=== PATIENT | female | born 1935 | race African-American/Black ===

== ENCOUNTER 2016-11-02 10:51 | Inpatient (IN) | payer MEDICARE, MEDICAID ==
[~2016-11-02] VITALS: Ht 160 cm; Wt 56.7 kg
[~2016-11-02 10:51] MED LIST: BENZ100C86 PO; CHOL500010 PO; CHOL500051 PO; CILO100T PO; CODE118S2 PO; FISH1CAP38 PO; FOLI-43 PO; KETO5DRO27 OP; METH2.5T PO; METH4TAB PO; MULT1TAB7 PO; SIMV20TA6 PO; omeprazole PO
[2016-11-02] MEDS ORDERED: MORPHINE SULFATE 4 MG/ML CPJ (NOT FOR IM USE) IV STA (12:32)
[2016-11-02] MEDS ORDERED: ONDANSETRON HCL 4MG/2ML VIAL IV STA (12:32)
[2016-11-02 13:01] LABS: HEMATOCRIT. 21.6 % (36.0-48.0); MEAN CORPUSCULAR HEMOGLOBIN 28.7 pg (28.0-32.0); MEAN CORPUSCULAR HGB CONC 31.8 g/dL (31.0-37.0); MEAN CORPUSCULAR VOLUME 90.3 fL (81.0-99.0); MEAN PLATELET VOLUME 8.1 fl (7.4-10.4); PLATELET 288 x1000/uL (130-400); RED BLOOD CELL COUNT 2.39 mill/uL (4.2-5.4); RED CELL DISTRIBUTION WIDTH 17.5 % (11.6-14.6); WHITE BLOOD COUNT 11.6 x1000/uL (4.5-11.0)
[2016-11-02 13:03] LABS: DIFFERENTIAL COMMENT 1; HEMOGLOBIN. 6.9 g/dL (12.0-16.0)
[2016-11-02 13:18] LABS: D-DIMER 2.11 mg/L FEU (<0.50); INR 1.1; PARTIAL THROMBOPLASTIN TIME 25.2 sec (24.0-34.0); PROTHROMBIN TIME 11.4 sec
[2016-11-02 13:22] LABS: ALANINE AMINOTRANSFERASE 21 IU/L (13-61); ALBUMIN 2.6 g/dL (3.4-5.0); ANION GAP 14; CALCIUM 8.5 mg/dL (8.5-10.1); CARBON DIOXIDE 25 mEq/L (21-32); CHLORIDE 103 mEq/L (98-107); INDEX HEMOLYSI 1 (1-3); INDEX ICTERIC 1 (1-4); INDEX LIPEMIC 1 (1-3); NT PRO B-TYPE NATRIURETIC PEP 1051 pg/mL (5-125); TROPONIN I < 0.02 ng/mL (0.00-0.04); UREA NITROGEN BLOOD 14 mg/dL (7-21); eGFR > 60 mL/min (>60)
[2016-11-02 13:39] LABS: ANISOCYTOSIS 1+; PLATELET ESTIMATE NORMAL
[2016-11-02] MEDS ORDERED: CLONIDINE 0.1MG TABLET PO PRN ×2 (14:15→15:03)
[2016-11-02] MEDS ORDERED: PANTOPRAZOLE 80 MG in SODIUM CHLORIDE 0.9% 100 ML IV SCH (14:30)
[2016-11-02] MEDS ORDERED: PANTOPRAZOLE SODIUM 40 MG/VIAL IV ONE (14:30)
[2016-11-02 14:43] LABS: INDEX HEMOLYSI 1 (1-3); INDEX ICTERIC 1 (1-4); INDEX LIPEMIC 1 (1-3); IRON 31 ug/dL (50-175); TOTAL IRON BINDING CAPACITY 302 ug/dL (250-450)
[2016-11-02] MEDS: AMLODIPINE 5MG TABLET PO SCH ×2 (15:28→21:00)
[2016-11-02] MEDS ORDERED: ONDANSETRON HCL 4MG/2ML VIAL IV PRN (16:15)
[2016-11-02] MEDS ORDERED: IPRATROPIUM/ALBUTEROL 0.5-3(2.5)MG/3ML NEB INH PRN (16:15)
[2016-11-02] MEDS ORDERED: DIPHENHYDRAMINE 50MG/ML VIAL IV PRN (16:15)
[2016-11-02] MEDS ORDERED: DOCUSATE SODIUM 100MG CAPSULE PO PRN (16:15)
[2016-11-02] MEDS ORDERED: NITROGLYCERIN 0.4MG TABLET SL SL PRN (16:15)
[2016-11-02] MEDS ORDERED: GUAIFENESIN 200MG/10ML SUGAR FREE UDC PO PRN (16:15)
[2016-11-02] MEDS ORDERED: LORAZEPAM 2MG/ML CPJ IV PRN (16:15)
[2016-11-02] MEDS ORDERED: NA PHOS,M-B/NA PHOS,DI-BA ENEMA 118ML PR PRN (16:34)
[2016-11-02] MEDS: PANTOPRAZOLE SODIUM 40 MG/VIAL IV SCH (17:00)
[2016-11-02] MEDS: MORPHINE SULFATE 2 MG/ML CPJ (NOT FOR IM USE) IV PRN (17:32)
[2016-11-02 18:59] LABS: HEMATOCRIT 26.5 % (36.0-48.0); HEMOGLOBIN 8.6 g/dL (12.0-16.0)
[2016-11-02] MEDS: TRAMADOL 50MG TABLET PO PRN (19:40)
[2016-11-02 22:20] VITALS: BP 170/64
[2016-11-02 22:28] LABS: CREATINE KINASE 162 IU/L (26-192); CREATINE KINASE MB FRACTION 2.3 ng/mL (0.5-3.6); INDEX HEMOLYSI 1 (1-3); TROPONIN I < 0.02 ng/mL (0.00-0.04)
[2016-11-03] VITALS: BP 123/56
[2016-11-03 00:49] LABS: HEMOGLOBIN 9.7 g/dL (12.0-16.0)
[2016-11-03] MEDS: TRAMADOL 50MG TABLET PO PRN ×2 (02:03→23:43)
[2016-11-03] MEDS: ZOLPIDEM TARTRATE 5MG TABLET PO PRN ×2 (02:03→22:40)
[2016-11-03 04:00] VITALS: BP 144/51
[2016-11-03 06:39] LABS: BASOPHILS % 0.7 % (0.0-2.0); EOSINOPHILS % 1.6 % (0.0-5.0); HEMATOCRIT. 32.9 % (36.0-48.0); HEMOGLOBIN. 10.7 g/dL (12.0-16.0); LYMPHOCYTES % 7.2 % (20.0-50.0); MEAN CORPUSCULAR HEMOGLOBIN 28.6 pg (28.0-32.0); MEAN CORPUSCULAR HGB CONC 32.4 g/dL (31.0-37.0); MEAN CORPUSCULAR VOLUME 88.2 fL (81.0-99.0); MEAN PLATELET VOLUME 8.7 fl (7.4-10.4); MONOCYTES % 9.4 % (2.0-8.0); NEUTROPHILS % 81.1 % (40.0-76.0); PLATELET 303 x1000/uL (130-400); RED BLOOD CELL COUNT 3.73 mill/uL (4.2-5.4); RED CELL DISTRIBUTION WIDTH 16.8 % (11.6-14.6)
[2016-11-03 06:57] LABS: ALANINE AMINOTRANSFERASE 26 IU/L (13-61); ALBUMIN 2.9 g/dL (3.4-5.0); ANION GAP 13; CALCIUM 8.5 mg/dL (8.5-10.1); CARBON DIOXIDE 26 mEq/L (21-32); CHLORIDE 102 mEq/L (98-107); CREATINE KINASE 203 IU/L (26-192); INDEX HEMOLYSI 1 (1-3); INDEX ICTERIC 1 (1-4); INDEX LIPEMIC 1 (1-3); NT PRO B-TYPE NATRIURETIC PEP 1129 pg/mL (5-125); UREA NITROGEN BLOOD 14 mg/dL (7-21); eGFR > 60 mL/min (>60)
[2016-11-03 06:58] LABS: TROPONIN I < 0.02 ng/mL (0.00-0.04)
[2016-11-03 08:00] VITALS: BP 130/65
[2016-11-03] MEDS: AMLODIPINE 5MG TABLET PO SCH ×2 (09:00→22:41)
[2016-11-03] MEDS: PANTOPRAZOLE SODIUM 40 MG/VIAL IV SCH ×2 (09:38→21:55)
[2016-11-03] MEDS: DEXT 5%/0.9% NACL 1,000 ML IV SCH (10:00)
[2016-11-03 12:00] VITALS: BP 131/62
[2016-11-03] MEDS ORDERED: SODIUM CHLORIDE 0.9% 10ML VIAL ONE (14:06)
[2016-11-03] MEDS ORDERED: SIMETHICONE 40 MG/0.6 ML 30ML ONE ×2 (14:06→16:26)
[2016-11-03 16:00] VITALS: BP 141/80
[2016-11-03] MEDS ORDERED: MIDAZOLAM HCL 5 MG/5 ML VIAL IV PRN ×2 (16:26)
[2016-11-03] MEDS ORDERED: MIDAZOLAM HCL 5 MG/5 ML VIAL ONE (16:26)
[2016-11-03] MEDS ORDERED: FENTANYL CITRATE/PF 50MCG/ML 2ML VIAL ONE (16:26)
[2016-11-03] MEDS ORDERED: FENTANYL CITRATE/PF 50MCG/ML 2ML VIAL IV PRN ×2 (16:26)
[2016-11-03 20:04] VITALS: BP 164/83
[2016-11-03] MEDS: MORPHINE SULFATE 2 MG/ML CPJ (NOT FOR IM USE) IV PRN (20:14)
[2016-11-04] VITALS: BP 142/82
[2016-11-04 04:00] VITALS: BP 148/71
[2016-11-04] MEDS: DEXT 5%/0.9% NACL 1,000 ML IV SCH (05:57)
[2016-11-04] MEDS: TRAMADOL 50MG TABLET PO PRN (05:58)
[2016-11-04] MEDS: ACETAMINOPHEN 325MG TABLET PO PRN ×3 (05:58→21:46)
[2016-11-04 08:00] VITALS: BP 137/65
[2016-11-04] MEDS: AMLODIPINE 5MG TABLET PO SCH ×2 (09:49→21:46)
[2016-11-04] MEDS: PANTOPRAZOLE SODIUM 40 MG/VIAL IV SCH ×2 (09:49→17:01)
[2016-11-04 12:00] VITALS: BP 116/58
[2016-11-04 16:00] VITALS: BP 138/62
[2016-11-04 20:00] VITALS: BP 139/68
[2016-11-05 01:17] VITALS: BP 138/75
[2016-11-05 04:00] VITALS: BP 124/60
[2016-11-05 06:34] LABS: HEMATOCRIT. 30.8 % (36.0-48.0); HEMOGLOBIN. 10.1 g/dL (12.0-16.0); MEAN CORPUSCULAR HEMOGLOBIN 28.5 pg (28.0-32.0); MEAN CORPUSCULAR HGB CONC 32.7 g/dL (31.0-37.0); MEAN CORPUSCULAR VOLUME 87.1 fL (81.0-99.0); MEAN PLATELET VOLUME 8.4 fl (7.4-10.4); PLATELET 297 x1000/uL (130-400); RED BLOOD CELL COUNT 3.53 mill/uL (4.2-5.4); RED CELL DISTRIBUTION WIDTH 16.7 % (11.6-14.6); WHITE BLOOD COUNT 8.7 x1000/uL (4.5-11.0)
[2016-11-05] MEDS: DEXT 5%/0.9% NACL 1,000 ML IV SCH (06:50)
[2016-11-05 07:03] LABS: DIFFERENTIAL COMMENT 1
[2016-11-05 07:09] LABS: ANION GAP 14; CALCIUM 8.1 mg/dL (8.5-10.1); CARBON DIOXIDE 25 mEq/L (21-32); CHLORIDE 103 mEq/L (98-107); INDEX HEMOLYSI 1 (1-3); INDEX ICTERIC 1 (1-4); INDEX LIPEMIC 1 (1-3); MAGNESIUM 1.9 mg/dL (1.8-2.4); UREA NITROGEN BLOOD 11 mg/dL (7-21)
[2016-11-05 07:11] LABS: eGFR > 60 mL/min (>60)
[2016-11-05 08:00] VITALS: BP 134/65
[2016-11-05] MEDS: PANTOPRAZOLE SODIUM 40 MG/VIAL IV SCH (10:34)
[2016-11-05] MEDS: AMLODIPINE 5MG TABLET PO SCH (10:34)
[2016-11-05 11:00] VITALS: BP 134/65
[2016-11-05 12:00] VITALS: BP 142/68
[2016-11-05 13:38] LABS: ANISOCYTOSIS 1+; PLATELET ESTIMATE NORMAL
== END 2016-11-05 14:25 | disposition home or self-care (01) | DRG 377 ==
LOC: ER 14:27 → 7WST 14:28 → SUPCPDRO 16:04 → 7WST 11-03 19:52
PROVIDERS: ADMIT Internal Medicine; ATTEND Internal Medicine
PROC: 30233N1 Transfusion of Nonautologous Red Blood Cells into Peripheral Vein, Percutaneous Approach (ICD-10-PCS; 2016-11-02)
PROC: 0DJ08ZZ Inspection of Upper Intestinal Tract, Via Natural or Artificial Opening Endoscopic (ICD-10-PCS; principal; 2016-11-03 15:00)
DX: K92.2 Gastrointestinal hemorrhage, unspecified (principal); E43 Unspecified severe protein-calorie malnutrition; G93.40 Encephalopathy, unspecified; D50.9 Iron deficiency anemia, unspecified; I11.9 Hypertensive heart disease without heart failure; I65.29 Occlusion and stenosis of unspecified carotid artery; I51.9 Heart disease, unspecified; J44.9 Chronic obstructive pulmonary disease, unspecified; I73.9 Peripheral vascular disease, unspecified; E78.00 Pure hypercholesterolemia, unspecified; E87.70 Fluid overload, unspecified; G89.29 Other chronic pain; H40.9 Unspecified glaucoma; M79.89 Other specified soft tissue disorders; T40.605A Adverse effect of unspecified narcotics, initial encounter; T42.4X5A Adverse effect of benzodiazepines, initial encounter; R26.2 Difficulty in walking, not elsewhere classified; I25.10 Atherosclerotic heart disease of native coronary artery without angina pectoris; K44.9 Diaphragmatic hernia without obstruction or gangrene; M06.9 Rheumatoid arthritis, unspecified; M19.90 Unspecified osteoarthritis, unspecified site; R31.9 Hematuria, unspecified; Z87.891 Personal history of nicotine dependence; Z68.22 Body mass index [BMI] 22.0-22.9, adult; Z98.890 Other specified postprocedural states; Z90.710 Acquired absence of both cervix and uterus
CPT/HCPCS: 36415; 71010; 80048; 80053; 80061; 82550; 82553; 83036; 83540; 83550; 83735; 83880; 84484; 85014; 85018; 85025; 85379; 85610; 85730; 86850; 86900; 86920; 93005; 93306; 93970; 96374; 96375; 96376; 99291; A4216; C1893; C9113; J2250; J2270; J2405; J3010; J7042; J7050; P9016

== ENCOUNTER 2016-11-29 21:34 | Inpatient (IN) | payer MEDICARE, MEDICAID ==
[~2016-11-29] VITALS: Ht 160 cm; Wt 51.7 kg
[2016-11-29] MEDS ORDERED: ONDANSETRON HCL 4MG/2ML VIAL IV STA (22:32)
[2016-11-29] MEDS ORDERED: MORPHINE SULFATE 4 MG/ML CPJ (NOT FOR IM USE) IV STA (22:32)
[2016-11-29 23:00] LABS: HEMATOCRIT. 26.9 % (36.0-48.0); HEMOGLOBIN. 8.7 g/dL (12.0-16.0); MEAN CORPUSCULAR HEMOGLOBIN 27.3 pg (28.0-32.0); MEAN CORPUSCULAR HGB CONC 32.3 g/dL (31.0-37.0); MEAN CORPUSCULAR VOLUME 84.4 fL (81.0-99.0); MEAN PLATELET VOLUME 8.4 fl (7.4-10.4); PLATELET 215 x1000/uL (130-400); RED BLOOD CELL COUNT 3.19 mill/uL (4.2-5.4); RED CELL DISTRIBUTION WIDTH 17.4 % (11.6-14.6); WHITE BLOOD COUNT 10.2 x1000/uL (4.5-11.0)
[2016-11-29 23:02] LABS: DIFFERENTIAL COMMENT 1
[2016-11-29 23:07] LABS: CHLORIDE 104 mEq/L (98-107); INDEX HEMOLYSI 2 (1-3); INDEX ICTERIC 1 (1-4); INDEX LIPEMIC 1 (1-3)
[2016-11-29 23:12] LABS: ANISOCYTOSIS 1+; PLATELET ESTIMATE NORMAL
[2016-11-29 23:15] LABS: ALANINE AMINOTRANSFERASE 17 IU/L (13-61); ALBUMIN 2.8 g/dL (3.4-5.0); ANION GAP 13; CALCIUM 8.2 mg/dL (8.5-10.1); CARBON DIOXIDE 24 mEq/L (21-32); UREA NITROGEN BLOOD 12 mg/dL (7-21); eGFR > 60 mL/min (>60)
[2016-11-29 23:31] LABS: INR 1.1; PARTIAL THROMBOPLASTIN TIME 24.9 sec (24.0-34.0); PROTHROMBIN TIME 11.6 sec
[2016-11-30] MEDS ORDERED: ACETAMINOPHEN 325MG TABLET PO PRN (01:45)
[2016-11-30] MEDS ORDERED: IPRATROPIUM/ALBUTEROL 0.5-3(2.5)MG/3ML NEB INH PRN (01:45)
[2016-11-30] MEDS ORDERED: MAGNESIUM/ALUMINUM HYDROXIDE/SIMETHICONE 30ML UDC PO PRN (01:45)
[2016-11-30] MEDS ORDERED: ENOXAPARIN 40MG/0.4ML SYR SUBCUT SCH (01:45)
[2016-11-30] MEDS ORDERED: ACETAMINOPHEN 650MG/20.3ML UDC GT PRN (01:45)
[2016-11-30] MEDS ORDERED: GUAIFENESIN 200MG/10ML SUGAR FREE UDC PO PRN (01:45)
[2016-11-30] MEDS ORDERED: DIPHENHYDRAMINE 50MG/ML VIAL IV PRN (01:45)
[2016-11-30] MEDS ORDERED: NA PHOS,M-B/NA PHOS,DI-BA ENEMA 118ML PR PRN ×2 (01:45→02:45)
[2016-11-30] MEDS ORDERED: DOCUSATE SODIUM 100MG CAPSULE PO PRN (01:45)
[2016-11-30] MEDS ORDERED: ACETAMINOPHEN 650MG SUPP PR PRN (01:45)
[2016-11-30] MEDS ORDERED: HYDROMORPHONE HCL/PF 2MG/ML CPJ IV PRN (01:45)
[2016-11-30] MEDS ORDERED: ONDANSETRON HCL 4MG/2ML VIAL IV PRN (01:45)
[2016-11-30 02:50] VITALS: BP 170/68
[2016-11-30] MEDS: HYDROMORPHONE HCL/PF 2MG/ML CPJ IV PRN ×2 (03:30→21:40)
[2016-11-30 04:00] VITALS: BP 176/84
[2016-11-30] MEDS ORDERED: SODIUM CHLORIDE 0.9% INJ 3ML FLUSH IVF SCH (06:00)
[2016-11-30] MEDS: SODIUM CHLORIDE 0.9% INJ 3ML FLUSH IVF SCH ×2 (06:37→20:59)
[2016-11-30 07:11] LABS: CLARITY URINE CLEAR (CLEAR); COLOR URINE YELLOW (YELLOW); GLUCOSE URINE NEGATIVE (NEGATIVE); KETONES URINE NEGATIVE (NEGATIVE); LEUKOCYTE ESTERASE URINE NEGATIVE (NEGATIVE); NITRITE URINE NEGATIVE (NEGATIVE); OCCULT BLOOD URINE 1+ (NEGATIVE); PH URINE 5.5 (4.5-8.0); PROTEIN URINE TRACE (NEGATIVE); SPECIFIC GRAVITY URINE 1.015 (1.005-1.030); UROBILINOGEN URINE 0.2 E.U./dL (0.2-1.0)
[2016-11-30 07:33] LABS: SQUAMOUS EPITHELIAL CELL URINE FEW /lpf (RARE/1+)
[2016-11-30 07:34] LABS: HYALINE CASTS URINE 0-5 /lpf; MUCUS URINE 1+ /lpf (< = 2+)
[2016-11-30 07:35] LABS: BACTERIA URINE TRACE; RBC URINE 0-2 /hpf (0-2); WBC URINE 0-2 /hpf (0-2)
[2016-11-30 07:47] LABS: *AMPHETAMINES SCREEN URINE NEGATIVE (NEGATIVE); *BARBITURATES SCREEN URINE NEGATIVE (NEGATIVE); *BENZODIAZEPINES SCREEN URINE NEGATIVE (NEGATIVE); *COCAINE SCREEN URINE NEGATIVE (NEGATIVE); CANNABINOID URINE SCREEN NEGATIVE (NEGATIVE); ECSTASY MDMA SCREEN URINE NEGATIVE (NEGATIVE); METHADONE URINE SCREEN NEGATIVE (NEGATIVE); OPIATES URINE SCREEN PRESUMTIVE POSITIVE (NEGATIVE); PHENCYCLIDINE URINE SCREEN NEGATIVE (NEGATIVE)
[2016-11-30 08:00] VITALS: BP 108/59
[2016-11-30] MEDS: ENOXAPARIN 40MG/0.4ML SYR SUBCUT SCH (09:00)
[2016-11-30 12:00] VITALS: BP 146/74
[2016-11-30 16:00] VITALS: BP 144/68
[2016-11-30 20:00] VITALS: BP 146/64
[2016-11-30 22:13] LABS: BASOPHILS % 0.8 % (0.0-2.0); EOSINOPHILS % 3.4 % (0.0-5.0); HEMATOCRIT. 28.8 % (36.0-48.0); HEMOGLOBIN. 9.3 g/dL (12.0-16.0); LYMPHOCYTES % 8.2 % (20.0-50.0); MEAN CORPUSCULAR HEMOGLOBIN 27.7 pg (28.0-32.0); MEAN CORPUSCULAR HGB CONC 32.2 g/dL (31.0-37.0); MEAN CORPUSCULAR VOLUME 85.9 fL (81.0-99.0); MEAN PLATELET VOLUME 8.7 fl (7.4-10.4); MONOCYTES % 10.6 % (2.0-8.0); PLATELET 242 x1000/uL (130-400); RED BLOOD CELL COUNT 3.35 mill/uL (4.2-5.4); RED CELL DISTRIBUTION WIDTH 17.7 % (11.6-14.6)
[2016-11-30 22:33] LABS: ALANINE AMINOTRANSFERASE 22 IU/L (13-61); ALBUMIN 3.1 g/dL (3.4-5.0); ANION GAP 16; CARBON DIOXIDE 24 mEq/L (21-32); CHLORIDE 103 mEq/L (98-107); INDEX HEMOLYSI 3 (1-3); INDEX ICTERIC 1 (1-4); INDEX LIPEMIC 1 (1-3); UREA NITROGEN BLOOD 10 mg/dL (7-21); eGFR > 60 mL/min (>60)
[2016-12-01] VITALS: BP 137/69
[2016-12-01 04:00] VITALS: BP 135/75
[2016-12-01] MEDS: SODIUM CHLORIDE 0.9% INJ 3ML FLUSH IVF SCH ×3 (06:43→20:28)
[2016-12-01 08:00] VITALS: BP 161/77
[2016-12-01] MEDS: ENOXAPARIN 40MG/0.4ML SYR SUBCUT SCH (08:24)
[2016-12-01] MEDS: CLONIDINE 0.1MG TABLET PO PRN (08:24)
[2016-12-01] MEDS: HYDROMORPHONE HCL/PF 2MG/ML CPJ IV PRN ×2 (09:24→20:29)
[2016-12-01] MEDS ORDERED: IOHEXOL-350 100 ML BOTTLE ONE (11:42)
[2016-12-01] MEDS ORDERED: SODIUM CHLORIDE 0.9% 10ML VIAL ONE (11:42)
[2016-12-01 12:00] VITALS: BP 144/59
[2016-12-01 15:51] VITALS: BP 116/55
[2016-12-01 20:00] VITALS: BP 167/87
[2016-12-02] VITALS: BP 142/71
[2016-12-02 04:00] VITALS: BP 141/65
[2016-12-02] MEDS: HYDROMORPHONE HCL/PF 2MG/ML CPJ IV PRN ×4 (05:24→22:53)
[2016-12-02] MEDS: SODIUM CHLORIDE 0.9% INJ 3ML FLUSH IVF SCH ×3 (05:25→23:02)
[2016-12-02 07:44] VITALS: BP 157/64
[2016-12-02] MEDS: ENOXAPARIN 40MG/0.4ML SYR SUBCUT SCH (08:36)
[2016-12-02] MEDS: HYDROCODONE/ACETAMINOPHEN 5/325MG TABLET PO PRN ×2 (10:52→17:01)
[2016-12-02 12:08] VITALS: BP 163/65
[2016-12-02 16:00] VITALS: BP 147/74
[2016-12-02 20:07] VITALS: BP 145/82
[2016-12-03] VITALS: BP_SYST 141; BP_SYST 142; BP_DIAS 62; BP_DIAS 76
[2016-12-03] MEDS: HYDROMORPHONE HCL/PF 2MG/ML CPJ IV PRN ×4 (03:26→21:25)
[2016-12-03 04:00] VITALS: BP 180/72
[2016-12-03] MEDS: SODIUM CHLORIDE 0.9% INJ 3ML FLUSH IVF SCH ×2 (05:25→13:37)
[2016-12-03] MEDS ORDERED: HYDROMORPHONE HCL/PF 2MG/ML CPJ IV SCH (06:15)
[2016-12-03] MEDS ORDERED: BACITRACIN ZINC 15GM TUBE TOP ONE (06:53)
[2016-12-03] MEDS ORDERED: GELATIN SPONGE,ABSORBABLE SZ 100 ONE (06:53)
[2016-12-03] MEDS ORDERED: THROMBIN (BOVINE) 5000 UNITS/VIAL TOP ONE (06:54)
[2016-12-03] MEDS ORDERED: HEPARIN SODIUM 1,000 UNIT/1ML VIAL IV ONE (06:54)
[2016-12-03] MEDS ORDERED: BUPIVACAINE HCL/PF 0.5% (5MG/ML) 10ML ONE (06:54)
[2016-12-03] MEDS ORDERED: BACITRACIN 50,000 UNITS/VIAL ONE (06:55)
[2016-12-03] MEDS ORDERED: NORMAL SALINE 0.9% 10 ML SYR ONE ×2 (06:55→07:55)
[2016-12-03] MEDS ORDERED: LIDOCAINE HCL 1% 20ML VIAL (Pyxis) INJ ONE ×2 (06:55→08:27)
[2016-12-03] MEDS ORDERED: FENTANYL CITRATE/PF 50MCG/ML 2ML VIAL ONE ×2 (08:03→08:47)
[2016-12-03] MEDS ORDERED: CEFAZOLIN SODIUM 1000MG/VIAL ONE (08:27)
[2016-12-03] MEDS ORDERED: PHENYLEPHRINE HCL 10 MG/ML 1ML (IV VIAL) IV ONE (08:27)
[2016-12-03] MEDS ORDERED: PROPOFOL 200MG/20ML VIAL IV ONE (08:27)
[2016-12-03] MEDS ORDERED: METOCLOPRAMIDE HCL 10MG/2ML VIAL ONE (08:27)
[2016-12-03] MEDS ORDERED: ONDANSETRON HCL 4MG/2ML VIAL ONE (08:27)
[2016-12-03] MEDS ORDERED: ONDANSETRON HCL 4MG/2ML VIAL IV ONE (08:30)
[2016-12-03] MEDS ORDERED: HYDROMORPHONE HCL/PF 2MG/ML CPJ IV PRN (08:30)
[2016-12-03] MEDS ORDERED: MEPERIDINE HCL/PF 25MG/ML CPJ IV PRN (08:30)
[2016-12-03] MEDS: ENOXAPARIN 40MG/0.4ML SYR SUBCUT SCH (09:00)
[2016-12-03] MEDS ORDERED: SODIUM BICARBONATE 8.4% 1 MEQ/ML 50ML SYR IV ONE (09:11)
[2016-12-03] MEDS ORDERED: PROTAMINE SULFATE 10MG/ML VIAL 5ML IV ONE (09:13)
[2016-12-03] MEDS ORDERED: HEPARIN 1000 UNITS/ML 10ML ONE (09:14)
[2016-12-03] MEDS: FENTANYL CITRATE/PF 50MCG/ML 2ML VIAL IV PRN ×4 (10:10→11:02)
[2016-12-03 12:00] VITALS: BP 169/75
[2016-12-03] MEDS: HYDROCODONE/ACETAMINOPHEN 5/325MG TABLET PO PRN (15:07)
[2016-12-03 16:00] VITALS: BP 168/77
[2016-12-03 17:48] VITALS: BP 148/71
[2016-12-03 20:00] VITALS: BP 146/72
[2016-12-04] VITALS: BP 142/76
[2016-12-04 04:00] VITALS: BP_SYST 140; BP_SYST 142; BP_DIAS 76; BP_DIAS 82
[2016-12-04 06:39] LABS: HEMATOCRIT. 26.8 % (36.0-48.0); HEMOGLOBIN. 8.7 g/dL (12.0-16.0); MEAN CORPUSCULAR HEMOGLOBIN 27.2 pg (28.0-32.0); MEAN CORPUSCULAR HGB CONC 32.4 g/dL (31.0-37.0); PLATELET 256 x1000/uL (130-400); RED BLOOD CELL COUNT 3.19 mill/uL (4.2-5.4); RED CELL DISTRIBUTION WIDTH 17.3 % (11.6-14.6); WHITE BLOOD COUNT 18.3 x1000/uL (4.5-11.0)
[2016-12-04] MEDS: SODIUM CHLORIDE 0.9% INJ 3ML FLUSH IVF SCH ×3 (07:02→20:46)
[2016-12-04] MEDS ORDERED: PLAVIX PO (07:19)
[2016-12-04 07:39] VITALS: BP 145/70
[2016-12-04 07:39] LABS: DIFFERENTIAL COMMENT 1
[2016-12-04 07:44] LABS: ANION GAP 15; CALCIUM 8.5 mg/dL (8.5-10.1); CARBON DIOXIDE 26 mEq/L (21-32); CHLORIDE 99 mEq/L (98-107); INDEX HEMOLYSI 1 (1-3); INDEX ICTERIC 1 (1-4); INDEX LIPEMIC 1 (1-3); UREA NITROGEN BLOOD 12 mg/dL (7-21); eGFR > 60 mL/min (>60)
[2016-12-04] MEDS: ENOXAPARIN 40MG/0.4ML SYR SUBCUT SCH (10:46)
[2016-12-04 11:33] VITALS: BP 162/69
[2016-12-04] MEDS: HYDROMORPHONE HCL/PF 2MG/ML CPJ IV PRN ×2 (12:54→19:31)
[2016-12-04] MEDS: PIPERACILLIN/TAZ 3.375G PREMIX 50 ML IV SCH ×2 (14:48→20:45)
[2016-12-04 15:54] VITALS: BP 153/68
[2016-12-04 20:00] VITALS: BP_SYST 102; BP_SYST 153; BP_DIAS 51; BP_DIAS 62
[2016-12-04 21:29] LABS: CLARITY URINE CLEAR (CLEAR); COLOR URINE DARK YELLOW (YELLOW); GLUCOSE URINE NEGATIVE (NEGATIVE); KETONES URINE 3+ (NEGATIVE); LEUKOCYTE ESTERASE URINE NEGATIVE (NEGATIVE); NITRITE URINE NEGATIVE (NEGATIVE); OCCULT BLOOD URINE 3+ (NEGATIVE); PROTEIN URINE 2+ (NEGATIVE); SPECIFIC GRAVITY URINE 1.022 (1.005-1.030)
[2016-12-04 22:34] LABS: WBC URINE 0-2 /hpf (0-2)
[2016-12-04 22:35] LABS: BACTERIA URINE 2+; SQUAMOUS EPITHELIAL CELL URINE 1+ /lpf (RARE/1+)
[2016-12-04 22:50] LABS: PLATELET ESTIMATE NORMAL
[2016-12-05] VITALS (7 sets, daily range): BP systolic 140–166; BP diastolic 56–90
[2016-12-05] MEDS: PIPERACILLIN/TAZ 3.375G PREMIX 50 ML IV SCH ×4 (02:56→23:13)
[2016-12-05] MEDS ORDERED: HYDROCODONE/ACETAMINOPHEN 5/325MG TABLET PO PRN (03:15)
[2016-12-05] MEDS: SODIUM CHLORIDE 0.9% INJ 3ML FLUSH IVF SCH ×3 (06:01→23:13)
[2016-12-05] MEDS: ENOXAPARIN 40MG/0.4ML SYR SUBCUT SCH (09:40)
[2016-12-05 17:26] LABS: HEMATOCRIT. 27.8 % (36.0-48.0); HEMOGLOBIN. 8.8 g/dL (12.0-16.0); MEAN CORPUSCULAR HEMOGLOBIN 26.9 pg (28.0-32.0); MEAN CORPUSCULAR HGB CONC 31.8 g/dL (31.0-37.0); MEAN CORPUSCULAR VOLUME 84.6 fL (81.0-99.0); MEAN PLATELET VOLUME 8.4 fl (7.4-10.4); PLATELET 250 x1000/uL (130-400); RED BLOOD CELL COUNT 3.28 mill/uL (4.2-5.4); RED CELL DISTRIBUTION WIDTH 17.6 % (11.6-14.6)
[2016-12-05 17:27] LABS: DIFFERENTIAL COMMENT 1
[2016-12-05 17:43] LABS: PLATELET ESTIMATE NORMAL
[2016-12-05] MEDS: CLONIDINE 0.1MG TABLET PO PRN (19:52)
[2016-12-06] VITALS: BP 145/75
== END 2016-12-06 00:20 | DRG 270 ==
LOC: ER 21:35 → 8WST 11-30 00:53 → ER 11-30 02:38
PROVIDERS: ADMIT Family Medicine; ATTEND Family Medicine
PROC: 04CK3ZZ Extirpation of Matter from Right Femoral Artery, Percutaneous Approach (ICD-10-PCS; principal; 2016-12-03 07:30)
DX: E11.51 Type 2 diabetes mellitus with diabetic peripheral angiopathy without gangrene (principal); E43 Unspecified severe protein-calorie malnutrition; L97.419 Non-pressure chronic ulcer of right heel and midfoot with unspecified severity; I74.8 Embolism and thrombosis of other arteries; E11.621 Type 2 diabetes mellitus with foot ulcer; G89.18 Other acute postprocedural pain; I10 Essential (primary) hypertension; E55.9 Vitamin D deficiency, unspecified; K21.9 Gastro-esophageal reflux disease without esophagitis; L97.519 Non-pressure chronic ulcer of other part of right foot with unspecified severity; I99.8 Other disorder of circulatory system; R26.9 Unspecified abnormalities of gait and mobility; D63.8 Anemia in other chronic diseases classified elsewhere; Z68.20 Body mass index [BMI] 20.0-20.9, adult; Z79.4 Long term (current) use of insulin
CPT/HCPCS: 36415; 71010; 75635; 80048; 80053; 80305; 81001; 82962; 83036; 85025; 85610; 85730; 88304; 88311; 93005; 93971; 96374; 96375; 99285; A4216; C1884; C1893; J0690; J1170; J1200; J1644; J1650; J2270; J2370; J2405; J2543; J2704; J2720; J2765; J3010; J3490; J7040; J7050; Q9967